=== PATIENT | male | born 1950 | race Asian ===

== ENCOUNTER 2024-01-06 10:33 | Emergency (ER) | payer MEDICARE ==
[~2024-01-06] VITALS: Ht 175.3 cm; Wt 65.8 kg
[2024-01-06 10:35] VITALS: BP_SYST 135; PULSE 129; RESP 22; TEMP 103.1; O2SAT 97
[2024-01-06] MEDS ORDERED: ACETAMINOPHEN 500 MG TABLET ONE (10:57)
[2024-01-06] MEDS ORDERED: PIPERACILLIN/TAZOBACTAM 3.375 GM/VIAL (ZOSYN) IV ONE ×2 (10:58)
[2024-01-06] MEDS: ACETAMINOPHEN 500 MG TABLET PO ONE (11:01)
[2024-01-06] MEDS: PIPERACILLIN/TAZO 3.375 GM in D5W 50 ML IV ONE (11:09)
[2024-01-06] MEDS: NS 1000 ML IV.SOLN IV ONE (11:10)
[2024-01-06 11:22] LABS: MEAN CORPUSCULAR HEMOGLOBIN 33 pg (27-31); MEAN CORPUSCULAR HGB CONC 34 % (32-36); MEAN CORPUSCULAR VOLUME 100 fL (79.0-98.0); RED BLOOD CELL COUNT(AUTO) 2.11 MIL/uL (4.2-6.2); RED CELL DISTRIBUTION WIDTH 14.2 % (9.0-15.0); WHITE BLOOD COUNT (AUTO) 11.9 K/uL (4.8-10.8)
[2024-01-06 11:31] LABS: ANION GAP 12 (5-15); CALCIUM 7.7 mg/dL (8.4-11.0); CARBON DIOXIDE 23 mmol/L (23-29); CHLORIDE 102 mmol/L (98-107); CREATININE 1.04 mg/dL (0.55-1.30); GLUCOSE 149 mg/dL (74-106); POTASSIUM 3.5 mmol/L (3.5-5.1); SODIUM SERUM 137 mmol/L (136-145); UREA NITROGEN, BLOOD 20 mg/dL (8-21)
[2024-01-06 11:33] LABS: PLATELET COUNT (AUTO) 35 K/uL (130-430)
[2024-01-06 11:35] LABS: INR 1.3 (0.80-1.20); PROTHROMBIN TIME 13.4 SECS (9.5-12.5)
[2024-01-06 11:39] LABS: ALANINE AMINOTRANSFERASE 115 U/L (12-78); ALBUMIN 2.1 g/dL (3.4-4.8); ASPARTATE AMINOTRANSFERASE 33 U/L (10-37); BILIRUBIN,DIRECT 4.6 mg/dL (0.0-0.3); TOTAL BILIRUBIN 5.2 mg/dL (0.0-1.0); TOTAL PROTEIN, SERUM 5.5 g/dL (6.4-8.3)
[2024-01-06 11:59] LABS: BILIRUBIN,URINE 2+ (NEGATIVE); BLOOD, URINE 1+ (NEGATIVE); CLARITY/URINE CLEAR (CLEAR); COLOR,URINE YELLOW (YELLOW); GLUCOSE,URINE NEGATIVE (NEGATIVE); KETONES,URINE 1+ (NEGATIVE); LEUKOCYTE ESTERASE ,URINE NEGATIVE (NEGATIVE); NITRITE, URINE NEGATIVE (NEGATIVE); PROTEIN URINE 2+ (NEGATIVE)
[2024-01-06 12:24] LABS: BAND % (MANUAL) 21 % (0-6); BASOPHILS % (MANUAL) 0 % (0-2); EOSINOPHILS % (MANUAL) 0 % (0-7); LYMPHOCYTES % (MANUAL) 1 % (20-46); METAMYELOCYTES % 4 % (0-0); MONOCYTES % (MANUAL) 1 % (0-11)
[2024-01-06 12:25] LABS: PLATELET ESTIMATE DECREASED (ADEQUATE)
[2024-01-06 12:38] LABS: WBC,URINE 0-3 /HPF (0-3)
[2024-01-06 12:39] LABS: BACTERIA,URINE None Seen /HPF (None Seen); COARSE GRANULAR CASTS,URINE 0 - 2 /LPF (None Seen)
[2024-01-06] MEDS: IBUPROFEN 400 MG TABLET PO ONE (13:21)
[2024-01-06 15:51] LABS: COVID19 ANTIGEN SOFIA FIA NEGATIVE (NEGATIVE)
[2024-01-06 15:58] LABS: INFLUENZA TYPE A Negative (NEGATIVE); INFLUENZA TYPE B NEGATIVE (NEGATIVE)
[2024-01-06 18:00] VITALS: BP_SYST 102; PULSE 110; RESP 23; TEMP 98.6; O2SAT 98
== END 2024-01-06 18:00 | disposition short-term general hospital (02) ==
LOC: SED 10:33
DX: D64.9 Anemia, unspecified (principal); D69.6 Thrombocytopenia, unspecified; R78.81 Bacteremia; R50.9 Fever, unspecified; R53.1 Weakness; E11.9 Type 2 diabetes mellitus without complications; I10 Essential (primary) hypertension; Z20.822 Contact with and (suspected) exposure to COVID-19
CPT/HCPCS: 99291; 96365; 71045; 87426; 85027; 80076; 80048; 81000; 81001; 83880; 85007; 85610; 85730; 86886; 86900; 86901; 87040; 87086; 87186; 84484; 36415; 93005; 87804 ×2; 81015; 83605; J2543